=== PATIENT | female | born 1965 | race Caucasian/White ===

== ENCOUNTER 2018-09-11 19:59 | Inpatient (IN) | payer MEDICARE, OTHER ==
[~2018-09-11] VITALS: Ht 172.7 cm; Wt 94.8 kg
[2018-09-11] MEDS ORDERED: methylPREDNISolone SOD SUCC PF 125 MG/2 ML VIAL. IV ONE (20:45)
[2018-09-11] MEDS ORDERED: HYDROmorphone 2 MG/ML VIAL ONE (21:11)
[2018-09-11] MEDS ORDERED: HYDROmorphone 2 MG/ML VIAL IV ONE (21:15)
[2018-09-11 21:54] LABS: BASO # 0.1 x10^3/uL (0.0-0.2); BASO % 1 % (0-3); EOS # 0.1 x10^3/uL (0.0-0.7); EOS % 1 % (0-3); HEMATOCRIT 45.3 % (36.0-47.0); HEMOGLOBIN 15.4 g/dL (12.0-15.5); LYMPH # 3.5 x10^3/uL (1.0-4.8); LYMPH % 35 % (24-48); MEAN CORPUSCULAR HEMOGLOBIN 30 pg (25-35); MEAN CORPUSCULAR HGB CONC 34 g/dL (31-37); MEAN CORPUSCULAR VOLUME 89 fL (79-100); MONO # 0.8 x10^3/uL (0.0-1.1); MONO % 8 % (0-9); NEUT # 5.6 x10^3uL (1.8-7.7); NEUT % 55 % (31-73); PLATELET COUNT 226 x10^3/uL (140-400); WHITE BLOOD COUNT 10.2 x10^3/uL (4.0-11.0)
[2018-09-11 22:08] LABS: CALCIUM 9.1 mg/dL (8.5-10.1); GFR 58.5; POTASSIUM 3.7 mmol/L (3.5-5.1)
[2018-09-11 22:11] LABS: BILIRUBIN,URINE NEGATIVE (NEG); CLARITY,URINE CLOUDY; COLOR,URINE YELLOW; NITRITE,URINE NEGATIVE (NEG); PH,URINE 8.5; PROTEIN,URINE NEGATIVE (NEG-TRACE); UROBILINOGEN,URINE 0.2 mg/dL (0.2 mg/dL)
[2018-09-11 22:14] LABS: ALBUMIN 3.6 g/dL (3.4-5.0); TOTAL BILIRUBIN 0.3 mg/dL (0.2-1.0); TOTAL PROTEIN 7.1 g/dL (6.4-8.2)
[2018-09-11 22:17] LABS: AMORPHOUS SEDIMENT,UR PRESENT /HPF; BACTERIA,URINE FEW /HPF (0-FEW); RBC,URINE 0 /HPF (0-2); SQUAMOUS EPITHELIAL CELL,UR FEW /LPF
[2018-09-11 22:19] LABS: AMPHETAMINE/METHAMPHETAMINE NEG (NEG); BARBITURATES NEG (NEG); BENZODIAZEPINES POS (NEG); CANNABINOIDS POS (NEG); COCAINE NEG (NEG); METHADONE NEG (NEG); OPIATES POS (NEG); PHENCYCLIDINE NEG (NEG)
--- NOTE | 2018-09-11 22:24 | PHYS DOC ---
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 Patient states she was sitting talking with her when she turned her head and had sudden onset of burning sensation. Pt on arrival is anxious and tearful. Patient states she has chronic neck and back pain however this is more severe than previous exacerbation. Patient denies inability to move all extremities. Patient denies saddle anesthesia, incontinence of bowel or bladder, headache or dizziness, swelling, chest pain, or palpitations. Shouldn't denies any recent injury or falls. Patient states she has had increased stress as a family member is actively dying. Patient states she is on daily OxyIR and took her last dose at 3:30 PM. Patient reports she had an MRI last month at [facility] spinal stenosis. (BRITTANY PHELAN APRN) Review of Systems Review of Systems Constitutional: Denies fever or chills [] Eyes: Denies change in visual acuity, redness, or eye pain [] HENT: Denies nasal congestion or sore throat [] Respiratory: Denies cough or shortness of breath [] Cardiovascular: No additional information not addressed in HPI [] GI: Denies abdominal pain, nausea, vomiting, bloody stools or diarrhea [] : Denies dysuria or hematuria. Denies incontinence of bowel or bladder. Musculoskeletal: Reports mid C-spine to bilateral lower extremities "burning sensation" and severe pain Integument: Denies rash, swelling or skin lesions [] Neurologic: Denies headache, focal weakness or sensory changes. Denies dizziness Endocrine: Denies polyuria or polydipsia [] All other systems were reviewed and found to be within normal limits, except as documented in this note. (BRITTANY PHELAN APRN) Current Medications Current Medications Current Medications Medications (Trade) Dose Ordered Sig/Nita Start Time Stop Time Status Last Admin Dose Admin Hydromorphone HCl (Dilaudid) 2 mg STK-MED ONCE 09/11/18 21:11 09/11/18 21:12 DC Lorazepam (Ativan) 1 mg 1X ONCE 09/11/18 20:45 09/11/18 20:46 DC 09/11/18 21:00 1 MG Methylprednisolone Sodium Succinate (SOLU-Medrol 125MG VIAL) 125 mg 1X ONCE 09/11/18 20:45 09/11/18 20:46 DC 09/11/18 21:10 125 MG (LA NENA VERNON MD) Allergies Allergies Allergies Coded Allergies Type Severity Reaction Last Updated Verified Latex, Natural Rubber Allergy Intermediate BLISTERS 01/27/15 Yes esomeprazole Allergy Intermediate HIVES, NAUSEA 01/27/15 Yes morphine Allergy Intermediate SEE COMMENTS 01/27/15 No pantoprazole Allergy Intermediate RASH 01/27/15 Yes (LA NENA VERNON MD) Physical Exam Physical Exam Constitutional: Well developed, well nourished, severe distress on initial exam to fall and anxious-hyperventilating HENT: Normocephalic, atraumatic, oropharynx moist, nose normal. [] Eyes: PERRLA, no nystagmus, conjunctiva normal, no discharge. [] Neck: Normal range of motion, diffuse tenderness in bilateral sides of neck into mid C-spine no palpable deformity or crepitus, healed surgical scar mid cspine- supple, no stridor. Trachea midline Cardiovascular: Heart rate regular rhythm, no murmur [] Lungs & Thorax: Bilateral breath sounds clear to auscultation- resp equal and nonlabored Abdomen: Bowel sounds normal, soft/obese, no tenderness/distention or rigidity, no masses, no pulsatile masses. [] Skin: Warm, dry, no erythema, no rash. [] Back: Diffuse tenderness on palpation of mid spine-palpation of anywhere on the back patient had increased pain and anxiety. No palpable deformity or visible injury Extremities: Tender on palpation of bilateral lower extremities, no cyanosis, no clubbing, ROM intact all extremities, no edema. 2+ radial bilateral. 2+ dorsalis pedis/posterior tibial. Neurologic: Alert and oriented X 3, normal motor function, normal sensory function, no focal deficits noted. [] Psychologic: Affect normal, judgement normal, anxious and restless During exam other patient was anxious and tearful. She was able to reposition herself for examination of back. Patient had full range of motion of upper and l ower extremities. Patient was able to reach and grab side rale arrival to her left side. She did turn her head to the left side. Following exam patient was able to reposition herself in supine position. (KULWINDERT,BRITTANY Kaur APRN) Current Patient Data Vital Signs Vital Signs Date Time Temp Pulse Resp B/P (MAP) Pulse Ox O2 Delivery O2 Flow Rate FiO2 09/11/18 21:14 94 Room Air 09/11/18 20:02 97.5 78 26 145/64 (91) 97.5 (LA NENA VERNON MD) Lab Values Laboratory Tests Test 09/11/18 21:40 09/11/18 22:02 White Blood Count 10.2 x10^3/uL (4.0-11.0) Red Blood Count 5.10 x10^6/uL (3.50-5.40) Hemoglobin 15.4 g/dL (12.0-15.5) Hematocrit 45.3 % (36.0-47.0) Mean Corpuscular Volume 89 fL (79-100) Mean Corpuscular Hemoglobin 30 pg (25-35) Mean Corpuscular Hemoglobin Concent 34 g/dL (31-37) Red Cell Distribution Width 15.0 % (11.5-14.5) H Platelet Count 226 x10^3/uL (140-400) Neutrophils (%) (Auto) 55 % (31-73) Lymphocytes (%) (Auto) 35 % (24-48) Monocytes (%) (Auto) 8 % (0-9) Eosinophils (%) (Auto) 1 % (0-3) Basophils (%) (Auto) 1 % (0-3) Neutrophils # (Auto) 5.6 x10^3uL (1.8-7.7) Lymphocytes # (Auto) 3.5 x10^3/uL (1.0-4.8) Monocytes # (Auto) 0.8 x10^3/uL (0.0-1.1) Eosinophils # (Auto) 0.1 x10^3/uL (0.0-0.7) Basophils # (Auto) 0.1 x10^3/uL (0.0-0.2) Sodium Level 143 mmol/L (136-145) Potassium Level 3.7 mmol/L (3.5-5.1) Chloride Level 105 mmol/L (98-107) Carbon Dioxide Level 27 mmol/L (21-32) Anion Gap 11 (6-14) Blood Urea Nitrogen 16 mg/dL (7-20) Creatinine 1.0 mg/dL (0.6-1.0) Estimated GFR (Cockcroft-Gault) 58.5 BUN/Creatinine Ratio 16 (6-20) Glucose Level 116 mg/dL (70-99) H Calcium Level 9.1 mg/dL (8.5-10.1) Total Bilirubin 0.3 mg/dL (0.2-1.0) Aspartate Amino Transferase (AST) 20 U/L (15-37) Alanine Aminotransferase (ALT) 27 U/L (14-59) Alkaline Phosphatase 80 U/L (46-116) Troponin I Quantitative < 0.017 ng/mL (0.000-0.055) Total Protein 7.1 g/dL (6.4-8.2) Albumin 3.6 g/dL (3.4-5.0) Albumin/Globulin Ratio 1.0 (1.0-1.7) Urine Collection Type Unknown Urine Color Yellow Urine Clarity Cloudy Urine pH 8.5 Urine Specific [place] 1.015 Urine Protein Negative mg/dL (NEG-TRACE) Urine Glucose (UA) Negative mg/dL (NEG) Urine Ketones (Stick) Negative mg/dL (NEG) Urine Blood Negative (NEG) Urine Nitrite Negative (NEG) Urine Bilirubin Negative (NEG) Urine Urobilinogen Dipstick 0.2 mg/dL (0.2 mg/dL) Urine Leukocyte Esterase Small (NEG) Urine RBC 0 /HPF (0-2) Urine WBC 1-4 /HPF (0-4) Urine Squamous Epithelial Cells Few /LPF Urine Amorphous Sediment Present /HPF Urine Bacteria Few /HPF (0-FEW) Urine Opiates Screen Pos (NEG) Urine Methadone Screen Neg (NEG) Urine Barbiturates Neg (NEG) Urine Phencyclidine Screen Neg (NEG) Urine Amphetamine/Methamphetamine Neg (NEG) Urine Benzodiazepines Screen Pos (NEG) Urine Cocaine Screen Neg (NEG) Urine Cannabinoids Screen Pos (NEG) Urine Ethyl Alcohol Neg (NEG) Laboratory Tests 09/11/18 21:40 Laboratory Tests 09/11/18 21:40 (LA NENA VERNON MD) EKG EKG EKG obtained 09/11/18 at [address] Vernon Sinus rhythm Rate 76 No STEMI (HARDYJENNIFERAnaBRITTANY APRN) Radiology/Procedures Radiology/Procedures PROCEDURE: CHEST AP ONLY AP portable chest radiograph 09/11/2018 Clinical History: Cough. An AP erect portable digital radiograph of the chest was obtained. Comparison study is dated 05/28/2010. Stabilizing rods and pedicle screws overlie the cervical spine. The cardiac silhouette is normal in size. The thoracic aorta is minimally tortuous. No acute pulmonary infiltrate is seen. No pleural effusion or pneumothorax is noted. Degenerative changes are seen involving the thoracic spine and both shoulders. Impression: No acute abnormality is seen. Electronically signed by: Silvestre Arndt MD (09/11/2018 11:39 PM) [facility] DICTATED and SIGNED BY: SILVESTRE ARNDT MD DATE: 09/11/18 9495 (BRITTANY PHELAN APRN) Course & Med Decision Making Course & Med Decision Making Pertinent Labs and Imaging studies reviewed. (See chart for details) Patient was evaluated in the ER for complaints of sudden onset of severe neck and back pain. Patient received IV pain and anxiety medication and required O2 to be applied via nasal cannula as her O2 saturation was 88% on room air following medications. Pt remained alert and oriented 3 had no focal neuro deficits while in the ER. Patient reported chronic neck and back pain but stated this was more severe than previous exacerbations. Patient had EKG obtained with no acute ST elevation or STEMI. Troponin was <0.017. Chest x-ray with no acute findings. Other labs unremarkable. Patient continued to report her pain had been minimally relieved with IV pain and anxiety medicine. Patient also received dose of IV Solu-Medrol. Patient had full range of motion of all extremities. This provider went into discussed test results and found patient to be on the bedpan. This provider assisted her off the bedpan and patient was able to lift her buttock without assist and reposition herself on the ER cart. Patient states she is still having significant neck and back pain and so admission was discussed. Will admit to hospitalist services and placed consult for neurosurgery. Patient states her neurosurgeon is at [facility] due to high flow she was brought to this ER for treatment. 2215: Spoke with Dr. Hagen, hospitalist and discussed pt's case and admit plan. (BRITTANY PHELAN APRN) Course & Med Decision Making Staff Physician Addendum: I was working in the ER during the course of this patient's visit. I was available for consultation as needed, but I was not directly involved in the care of this patient. (LA NENA VERNON MD) Dragon Disclaimer Dragon Disclaimer This electronic medical record was generated, in whole or in part, using a voice recognition dictation system. (BRITTANY PHELAN APRN) Departure Departure Impression: Primary Impression: Intractable pain Additional Impressions: Neck pain Back pain Disposition: ADMITTED INPATIENT Admitting Physician: Other (Dr. Hagen) (BRITTANY PHELAN APRN) Condition: STABLE Referrals: KARLY MCCARTY MD (PCP) Problem Qualifiers BRITTANY PHELAN APRN September 11, 2018 22:24 LA NENA VERNON MD September 18, 2018 06:47
[2018-09-11] MEDS ORDERED: DOXYCYCLINE HYCLATE 100 MG TABLET PO ONE (23:15)
--- NOTE | 2018-09-11 23:42 | RAD ---
AP portable chest radiograph 09/11/2018 Clinical History: Cough. An AP erect portable digital radiograph of the chest was obtained. Comparison study is dated 05/28/2010. Stabilizing rods and pedicle screws overlie the cervical spine. The cardiac silhouette is normal in size. The thoracic aorta is minimally tortuous. No acute pulmonary infiltrate is seen. No pleural effusion or pneumothorax is noted. Degenerative changes are seen involving the thoracic spine and both shoulders. Impression: No acute abnormality is seen. Electronically signed by: Silvestre Arndt MD (09/11/2018 11:39 PM) [facility]
[2018-09-12] VITALS (7 sets, daily range): BP systolic 117–139; BP diastolic 51–78
[2018-09-12] MEDS: HYDROmorphone 2 MG/ML VIAL IV PRN ×4 (01:32→13:52)
[2018-09-12] MEDS: ONDANSETRON PF 4 MG/2 ML VIAL. IV PRN ×2 (01:39→10:02)
[2018-09-12 05:23] LABS: BASO # 0.1 x10^3/uL (0.0-0.2); BASO % 1 % (0-3); EOS % 0 % (0-3); HEMATOCRIT 48.6 % (36.0-47.0); HEMOGLOBIN 16.3 g/dL (12.0-15.5); LYMPH # 1.4 x10^3/uL (1.0-4.8); LYMPH % 14 % (24-48); MEAN CORPUSCULAR HEMOGLOBIN 30 pg (25-35); MEAN CORPUSCULAR HGB CONC 34 g/dL (31-37); MEAN CORPUSCULAR VOLUME 89 fL (79-100); MONO # 0.3 x10^3/uL (0.0-1.1); MONO % 3 % (0-9); NEUT # 8.2 x10^3uL (1.8-7.7); NEUT % 83 % (31-73); PLATELET COUNT 266 x10^3/uL (140-400); RED CELL DISTRIBUTION WIDTH 15.1 % (11.5-14.5)
[2018-09-12 05:35] LABS: CALCIUM 9.6 mg/dL (8.5-10.1); CREATININE 0.9 mg/dL (0.6-1.0)
--- NOTE | 2018-09-12 06:42 | EKG ---
[facility] [address] [place] [id number] Test Date: 2018-09-11 Test Time: 21:06:32 Pat Name: MEREDITH ROCHA Department: Room: [facility] Gender: F Custodial Foreman: LENINTahira : 1965 Requested By: BRITTANY PHELAN Order Number: [id number] Reading MD: Pedro Meyer Measurements Intervals [place] Rate: 75 P: -44 TX: 156 QRS: 68 QRSD: 94 T: 74 QT: 408 QTc: 458 Interpretive Statements SINUS RHYTHM QRS(T) CONTOUR ABNORMALITY CANNOT RULE OUT ANTEROSEPTAL MYOCARDIAL DAMAGE BORDERLINE ECG No previous ECG available for comparison Electronically Signed On 10-06-2018 11:43:17 CDT by Pedro Meyer
--- NOTE | 2018-09-12 08:19 | PDOC1 ---
History and Physical Date of Admission Date of Admission DATE: 09/12/18 TIME: 08:18 Identification/Chief Complaint Chief Complaint Shooting back pain Source Source: Chart review, Patient History of Present Illness History of Present Illness Ms Richey is a 53-year-old female w/ PMHx Anxiety, Arthritis, Asthma, Diverticulitis, Fibromyalgia, High Cholesterol, Seizures, DJD cervical spine, cervical spinal stenosis who presents to ER for complaints of sudden onset of posterior neck pain radiating down her spine into her legs. Patient states she was sitting talking with her when she turned her head and had sudden onset of burning sensation. Pt on arrival is anxious and tearful. Patient states she has chronic neck and back pain however this is more severe than previous times, she notes aching in all the muscles of her body. Patient denies inability to move all extremities. Patient denies saddle anesthesia, incontinence of bowel or bladder, headache or dizziness, swelling, chest pain, or palpitations. Shouldn't denies any recent injury or falls. Patient states she has had increased stress as a family member is actively dying. Patient states she is on daily OxyIR 10mg TID and Oxycontin recently increased to 50mg BID. States she does not miss doses Patient reports she had an MRI last month at [facility] for spinal stenosis and has f/u there. Past Medical History Cardiovascular: Hyperlipidemia Pulmonary: Asthma CENTRAL NERVOUS SYSTEM: Seizure GI: Diverticulosis Heme/Onc: No pertinent hx Hepatobiliary: No pertinent hx Psych: Anxiety Musculoskeletal: low back pain Rheumatologic: Fibromyalgia Infectious disease: No pertinent hx ENT: No pertinent hx Renal/: No pertinent hx Endocrine: No pertinent hx Dermatology: No pertinent hx Past Surgical History Past Surgical History: Cholecystectomy, Tubal Ligation Family History Family History: High Cholestrol, Hypertension Social History Smoke: No ALCOHOL: none Drugs: None Current Problem List Problem List Problems Medical Problems: (1) Back pain Status: Acute (2) Intractable pain Status: Acute (3) Neck pain Status: Acute Current Medications Current Medications Current Medications Lorazepam (Ativan) 1 mg 1X ONCE IV Last administered on 09/11/18at 21:00; Start 09/11/18 at 20:45; Stop 09/11/18 at 20:46; Status DC Methylprednisolone Sodium Succinate (SOLU-Medrol 125MG VIAL) 125 mg 1X ONCE IV Last administered on 09/11/18at 21:10; Start 09/11/18 at 20:45; Stop 09/11/18 at 20:46; Status DC Hydromorphone HCl (Dilaudid) 1 mg 1X ONCE IV Last administered on 09/11/18at 21:14; Start 09/11/18 at 21:15; Stop 09/11/18 at 21:16; Status DC Hydromorphone HCl (Dilaudid) 2 mg STK-MED ONCE .ROUTE ; Start 09/11/18 at 21:11; Stop 09/11/18 at 21:12; Status DC Doxycycline Hyclate (Vibra-Tab) 100 mg 1X ONCE PO Last administered on 09/11/18at 23:08; Start 09/11/18 at 23:15; Stop 09/11/18 at 23:16; Status DC Hydromorphone HCl (Dilaudid) 1 mg PRN Q4HRS PRN IV SEVERE PAIN Last administered on 09/12/18at 06:15; Start 09/12/18 at 00:00 Ondansetron HCl (Zofran) 4 mg PRN Q8HRS PRN IV NAUSEA/VOMITING 1ST CHOICE Last administered on 09/12/18at 01:39; Start 09/12/18 at 00:00; Stop 09/12/18 at 23:59 Allergies Allergies: Coded Allergies: Latex, Natural Rubber (Verified Allergy, Intermediate, BLISTERS, 01/27/15) esomeprazole (Verified Allergy, Intermediate, HIVES, NAUSEA , 01/27/15) morphine (Unverified Allergy, Intermediate, SEE COMMENTS, 01/27/15) ITCHY RASH; TOLERATES LORTAB pantoprazole (Verified Allergy, Intermediate, RASH, 01/27/15) ROS General: YES: Chills, Fatigue, Malaise; No: Night Sweats, Appetite, Other PSYCHOLOGICAL ROS: YES: Anxiety; No: Behavioral Disorder, Concentration difficultie, Decreased libido, Depression, Disorientation, Hallucinations, Hostility, Irritablity, Memory difficulties, Mood Swings, Obsessive thoughts, Physical abuse, Sexual abuse, Sleep disturbances, Suicidal ideation, Other Eyes: No Blurry vision, No Decreased vision, No Double vision, No Dry eyes, No Excessive tearing, No Eye Pain, No Itchy Eyes, No Loss of vision, No Photophobia, No Scotomata, No Uses contacts, No Uses glasses, No Other HEENT: YES: Heacaches; No: Visual Changes, Hearing change, Nasal congestion, Nasal discharge, Oral lesions, Sinus pain, Sore Throat, Epistaxis, Sneezing, Snoring, Tinnitus, Vertigo, Vocal changes, Other ALLERGY AND IMMUNOLOGY: No: Hives, Insect Bite Sensitivity, Itchy/Watery Eyes, Nasal Congestion, Post Nasal Drip, Seasonal Allergies, Other Hematological and Lymphatic: No: Bleeding Problems, Blood Clots, Blood Transfusions, Brusing, Night Sweats, Pallor, Swollen Lymph Nodes, Other ENDOCRINE: No: Breast Changes, Galactorrhea, Hair Pattern Changes, Hot Flashes, Malaise/lethargy, Mood Swings, Palpitations, Polydipsia/polyuria, Skin Changes, Temperature Intolerance, Unexpected Weight Changes, Other Breast: No New/Changing Breast Lumps, No Nipple changes, No Nipple discharge, No Other Respiratory: No: Cough, Hemoptysis, Orthopnea, Pleuritic Pain, Shortness of breath, SOB with excertion, Sputum Changes, Stridor, Tachypnea, Wheezing, Other Cardiovascular: No Chest Pain, No Palpitations, No Orthopnea, No Paroxysmal Noc. Dyspnea, No Edema, No Lt Headedness, No Other Gastrointestinal: Yes Nausea; No Vomiting, No Abdominal Pain, No Diarrhea, No Constipation, No Melena, No Hematochezia, No Other Genitourinary: No Dysuria, No Frequency, No Incontinence, No Hematuria, No Retention, No Discharge, No Urgency, No Pain, No Flank Pain, No Other, No , No , No , No , No , No , No Musculoskeletal: Yes Gait Disturbance, Yes Muscle Pain, Yes Muscular Weakness; No Joint Pain, No Joint Stiffness, No Joint Swelling, No Pain In:, No Swelling In:, No Other Neurological: No Behavorial Changes, No Bowel/Bladder ControlChng, No Confusion, No Dizziness, No Gait Disturbance, No Headaches, No Impaired Coord/balance, No Memory Loss, No Numbness/Tingling, No Seizures, No Speech Problems, No Tremors, No Visual Changes, No Weakness, No Other Skin: No Dry Skin, No Eczema, No Hair Changes, No Lumps, No Mole Changes, No Mottling, No Nail Changes, No Pruritus, No Rash, No Skin Lesion Changes, No Other, No Acne Physical Exam General: Alert, Oriented X3, Cooperative, No acute distress HEENT: Atraumatic, PERRLA, EOMI, Mucous membr. moist/pink Lungs: Clear to auscultation, Normal air movement Heart: S1S2, RRR, no gallops, no murmurs Abdomen: Normal bowel sounds, Soft, No tenderness, No hepatosplenomegaly, No masses Rectal Exam: not examined Extremities: No clubbing, No cyanosis, No edema, Normal pulses, No tenderness/swelling Skin: No rashes, No breakdown, No significant lesion Neuro: Normal gait, Normal speech, Strength at 5/5 X4 ext, Normal tone, Sensation intact, Cranial nerves 3-12 NL, Reflexes 2+ Psych/Mental Status: Mental status NL, Mood NL Vitals Vitals Vital Signs Date Time Temp Pulse Resp B/P (MAP) Pulse Ox O2 Delivery O2 Flow Rate FiO2 09/12/18 07:47 Room Air 09/12/18 03:00 98.1 90 18 136/51 (79) 95 2.0 98.1 Labs Labs Laboratory Tests Test 09/11/18 21:40 09/11/18 22:02 09/12/18 05:00 White Blood Count 10.2 x10^3/uL (4.0-11.0) 10.0 x10^3/uL (4.0-11.0) Red Blood Count 5.10 x10^6/uL (3.50-5.40) 5.50 x10^6/uL (3.50-5.40) Hemoglobin 15.4 g/dL (12.0-15.5) 16.3 g/dL (12.0-15.5) Hematocrit 45.3 % (36.0-47.0) 48.6 % (36.0-47.0) Mean Corpuscular Volume 89 fL (79-100) 89 fL (79-100) Mean Corpuscular Hemoglobin 30 pg (25-35) 30 pg (25-35) Mean Corpuscular Hemoglobin Concent 34 g/dL (31-37) 34 g/dL (31-37) Red Cell Distribution Width 15.0 % (11.5-14.5) 15.1 % (11.5-14.5) Platelet Count 226 x10^3/uL (140-400) 266 x10^3/uL (140-400) Neutrophils (%) (Auto) 55 % (31-73) 83 % (31-73) Lymphocytes (%) (Auto) 35 % (24-48) 14 % (24-48) Monocytes (%) (Auto) 8 % (0-9) 3 % (0-9) Eosinophils (%) (Auto) 1 % (0-3) 0 % (0-3) Basophils (%) (Auto) 1 % (0-3) 1 % (0-3) Neutrophils # (Auto) 5.6 x10^3uL (1.8-7.7) 8.2 x10^3uL (1.8-7.7) Lymphocytes # (Auto) 3.5 x10^3/uL (1.0-4.8) 1.4 x10^3/uL (1.0-4.8) Monocytes # (Auto) 0.8 x10^3/uL (0.0-1.1) 0.3 x10^3/uL (0.0-1.1) Eosinophils # (Auto) 0.1 x10^3/uL (0.0-0.7) 0.0 x10^3/uL (0.0-0.7) Basophils # (Auto) 0.1 x10^3/uL (0.0-0.2) 0.1 x10^3/uL (0.0-0.2) Sodium Level 143 mmol/L (136-145) 141 mmol/L (136-145) Potassium Level 3.7 mmol/L (3.5-5.1) 4.0 mmol/L (3.5-5.1) Chloride Level 105 mmol/L (98-107) 104 mmol/L (98-107) Carbon Dioxide Level 27 mmol/L (21-32) 23 mmol/L (21-32) Anion Gap 11 (6-14) 14 (6-14) Blood Urea Nitrogen 16 mg/dL (7-20) 20 mg/dL (7-20) Creatinine 1.0 mg/dL (0.6-1.0) 0.9 mg/dL (0.6-1.0) Estimated GFR (Cockcroft-Gault) 58.5 66.0 BUN/Creatinine Ratio 16 (6-20) Glucose Level 116 mg/dL (70-99) 146 mg/dL (70-99) Calcium Level 9.1 mg/dL (8.5-10.1) 9.6 mg/dL (8.5-10.1) Total Bilirubin 0.3 mg/dL (0.2-1.0) Aspartate Amino Transf (AST/SGOT) 20 U/L (15-37) Alanine Aminotransferase (ALT/SGPT) 27 U/L (14-59) Alkaline Phosphatase 80 U/L (46-116) Troponin I Quantitative < 0.017 ng/mL (0.000-0.055) Total Protein 7.1 g/dL (6.4-8.2) Albumin 3.6 g/dL (3.4-5.0) Albumin/Globulin Ratio 1.0 (1.0-1.7) Urine Collection Type Unknown Urine Color Yellow Urine Clarity Cloudy Urine pH 8.5 Urine Specific Eunice 1.015 Urine Protein Negative mg/dL (NEG-TRACE) Urine Glucose (UA) Negative mg/dL (NEG) Urine Ketones (Stick) Negative mg/dL (NEG) Urine Blood Negative (NEG) Urine Nitrite Negative (NEG) Urine Bilirubin Negative (NEG) Urine Urobilinogen Dipstick 0.2 mg/dL (0.2 mg/dL) Urine Leukocyte Esterase Small (NEG) Urine RBC 0 /HPF (0-2) Urine WBC 1-4 /HPF (0-4) Urine Squamous Epithelial Cells Few /LPF Urine Amorphous Sediment Present /HPF Urine Bacteria Few /HPF (0-FEW) Urine Opiates Screen Pos (NEG) Urine Methadone Screen Neg (NEG) Urine Barbiturates Neg (NEG) Urine Phencyclidine Screen Neg (NEG) Urine Amphetamine/Methamphetamine Neg (NEG) Urine Benzodiazepines Screen Pos (NEG) Urine Cocaine Screen Neg (NEG) Urine Cannabinoids Screen Pos (NEG) Urine Ethyl Alcohol Neg (NEG) Laboratory Tests Test 09/11/18 21:40 09/11/18 22:02 09/12/18 05:00 White Blood Count 10.2 x10^3/uL (4.0-11.0) 10.0 x10^3/uL (4.0-11.0) Red Blood Count 5.10 x10^6/uL (3.50-5.40) 5.50 x10^6/uL (3.50-5.40) Hemoglobin 15.4 g/dL (12.0-15.5) 16.3 g/dL (12.0-15.5) Hematocrit 45.3 % (36.0-47.0) 48.6 % (36.0-47.0) Mean Corpuscular Volume 89 fL (79-100) 89 fL (79-100) Mean Corpuscular Hemoglobin 30 pg (25-35) 30 pg (25-35) Mean Corpuscular Hemoglobin Concent 34 g/dL (31-37) 34 g/dL (31-37) Red Cell Distribution Width 15.0 % (11.5-14.5) 15.1 % (11.5-14.5) Platelet Count 226 x10^3/uL (140-400) 266 x10^3/uL (140-400) Neutrophils (%) (Auto) 55 % (31-73) 83 % (31-73) Lymphocytes (%) (Auto) 35 % (24-48) 14 % (24-48) Monocytes (%) (Auto) 8 % (0-9) 3 % (0-9) Eosinophils (%) (Auto) 1 % (0-3) 0 % (0-3) Basophils (%) (Auto) 1 % (0-3) 1 % (0-3) Neutrophils # (Auto) 5.6 x10^3uL (1.8-7.7) 8.2 x10^3uL (1.8-7.7) Lymphocytes # (Auto) 3.5 x10^3/uL (1.0-4.8) 1.4 x10^3/uL (1.0-4.8) Monocytes # (Auto) 0.8 x10^3/uL (0.0-1.1) 0.3 x10^3/uL (0.0-1.1) Eosinophils # (Auto) 0.1 x10^3/uL (0.0-0.7) 0.0 x10^3/uL (0.0-0.7) Basophils # (Auto) 0.1 x10^3/uL (0.0-0.2) 0.1 x10^3/uL (0.0-0.2) Sodium Level 143 mmol/L (136-145) 141 mmol/L (136-145) Potassium Level 3.7 mmol/L (3.5-5.1) 4.0 mmol/L (3.5-5.1) Chloride Level 105 mmol/L (98-107) 104 mmol/L (98-107) Carbon Dioxide Level 27 mmol/L (21-32) 23 mmol/L (21-32) Anion Gap 11 (6-14) 14 (6-14) Blood Urea Nitrogen 16 mg/dL (7-20) 20 mg/dL (7-20) Creatinine 1.0 mg/dL (0.6-1.0) 0.9 mg/dL (0.6-1.0) Estimated GFR (Cockcroft-Gault) 58.5 66.0 BUN/Creatinine Ratio 16 (6-20) Glucose Level 116 mg/dL (70-99) 146 mg/dL (70-99) Calcium Level 9.1 mg/dL (8.5-10.1) 9.6 mg/dL (8.5-10.1) Total Bilirubin 0.3 mg/dL (0.2-1.0) Aspartate Amino Transf (AST/SGOT) 20 U/L (15-37) Alanine Aminotransferase (ALT/SGPT) 27 U/L (14-59) Alkaline Phosphatase 80 U/L (46-116) Troponin I Quantitative < 0.017 ng/mL (0.000-0.055) Total Protein 7.1 g/dL (6.4-8.2) Albumin 3.6 g/dL (3.4-5.0) Albumin/Globulin Ratio 1.0 (1.0-1.7) Urine Collection Type Unknown Urine Color Yellow Urine Clarity Cloudy Urine pH 8.5 Urine Specific Eunice 1.015 Urine Protein Negative mg/dL (NEG-TRACE) Urine Glucose (UA) Negative mg/dL (NEG) Urine Ketones (Stick) Negative mg/dL (NEG) Urine Blood Negative (NEG) Urine Nitrite Negative (NEG) Urine Bilirubin Negative (NEG) Urine Urobilinogen Dipstick 0.2 mg/dL (0.2 mg/dL) Urine Leukocyte Esterase Small (NEG) Urine RBC 0 /HPF (0-2) Urine WBC 1-4 /HPF (0-4) Urine Squamous Epithelial Cells Few /LPF Urine Amorphous Sediment Present /HPF Urine Bacteria Few /HPF (0-FEW) Urine Opiates Screen Pos (NEG) Urine Methadone Screen Neg (NEG) Urine Barbiturates Neg (NEG) Urine Phencyclidine Screen Neg (NEG) Urine Amphetamine/Methamphetamine Neg (NEG) Urine Benzodiazepines Screen Pos (NEG) Urine Cocaine Screen Neg (NEG) Urine Cannabinoids Screen Pos (NEG) Urine Ethyl Alcohol Neg (NEG) Images Images CXR - Stabilizing rods and pedicle screws overlie the cervical spine. The cardiac silhouette is normal in size. The thoracic aorta is minimally tortuous. No acute pulmonary infiltrate is seen. No pleural effusion or pneumothorax is noted. Degenerative changes are seen involving the thoracic spine and both shoulders. VTE Prophylaxis Ordered VTE Prophylaxis Devices: No VTE Pharmacological Prophylaxi: Yes Assessment/Plan Assessment/Plan A/P: Intractable back pain - IV medications do not seem to be helping, will restart her home medications, consult neurosurgery Myalgias - seems she may be in some opioid withdrawal at this time regarding her symptoms, will restart her Oxycontin Anxiety - cont meds. Advised she should either not be taking benzos or be taking them with extreme caution with her high dosing regimen of opioids to avoid conscious sedation and risk of overdose. 20 minutes spent counseling on proper medication use Arthritis - with polyarthralgias, given steroids with little improvement Asthma - cont nebs Fibromyalgia - cont cymbalta High Cholesterol - cont statin Seizures - cont meds DJD cervical spine with cervical spinal stenosis - s/p surgery, has f/u with [facility], will order records FEN - General diet PPX - heparin FULL CODE Inpatient for intractable back pain and myalgias, patient unable to move. Will cont pain management until she is ambulatory, f/u with neurosurgery, may be able to d/c in next day or 2 if no interventions are planned PASCUAL CARR MD September 12, 2018 08:19
[2018-09-12] MEDS: CYCLOBENZAPRINE 10 MG TABLET. PO PRN ×2 (10:02→15:57)
--- NOTE | 2018-09-12 10:58 | NUR ---
Pt states she takes a lot of home medications but she can't remember what they are. She reports that her is going to bring the bottles up.
--- NOTE | 2018-09-12 12:07 | NUR ---
SW following for discharge planning. Discussed with RN, pt is from home with . RN advised no SW needs at this time, awaiting PT/OT. SW will continue to follow for any discharge planning needs.
[2018-09-12] MEDS ORDERED: DULO60CA6 PO (13:05)
[2018-09-12] MEDS ORDERED: PREG75CA PO (13:05)
[2018-09-12] MEDS ORDERED: METH-37 PO (13:05)
[2018-09-12] MEDS ORDERED: VENTOLIN HFA18 GM INH (13:05)
[2018-09-12] MEDS ORDERED: FERR325T14 PO (13:05)
[2018-09-12] MEDS ORDERED: ZIPR80CA2 PO (13:05)
[2018-09-12] MEDS ORDERED: ONDA4TAB11 PO (13:05)
[2018-09-12] MEDS ORDERED: MONT10TA9 PO (13:05)
[2018-09-12] MEDS ORDERED: DIAZ5TAB4 PO (13:05)
[2018-09-12] MEDS ORDERED: DICL100G18 TP (13:05)
[2018-09-12] MEDS ORDERED: LAMO150T2 PO (13:05)
[2018-09-12] MEDS ORDERED: LACT20SO PO (13:05)
[2018-09-12] MEDS ORDERED: MULT1TAB68 PO (13:05)
[2018-09-12] MEDS ORDERED: CARB200T PO (13:05)
[2018-09-12] MEDS ORDERED: PREG150C PO (13:05)
[2018-09-12] MEDS ORDERED: OXYC20TA34 PO (13:05)
[2018-09-12] MEDS ORDERED: FENO145T30 PO (13:05)
[2018-09-12] MEDS ORDERED: OXYC40TA21 PO (13:05)
[2018-09-12] MEDS ORDERED: OMEP40CA5 PO (13:05)
[2018-09-12] MEDS ORDERED: OXYC5CAP PO (13:05)
[2018-09-12] MEDS ORDERED: LACTULOSE 20 GM/30 ML SOLUTION. PO PRN (13:30)
[2018-09-12] MEDS ORDERED: METHOCARBAMOL 500 MG TABLET PO PRN (13:30)
[2018-09-12] MEDS: oxyCODONE ER 10 MG TAB.ER.12H PO SCH ×2 (13:45→21:07)
[2018-09-12] MEDS ORDERED: ONDANSETRON ODT 4 MG TAB.RAPDIS. PO PRN (13:45)
[2018-09-12] MEDS: oxyCODONE ER 40 MG TAB.ER.12H PO SCH ×2 (13:46→21:07)
[2018-09-12] MEDS: carBAMazepine 200 MG TABLET PO SCH ×2 (13:52→21:07)
[2018-09-12] MEDS: FERROUS SULFATE 325 MG TABLET. PO SCH (13:52)
[2018-09-12] MEDS: FENOFIBRATE,MICRONIZED 134 MG CAPSULE PO SCH (13:52)
[2018-09-12] MEDS: DULoxetine HCL 30 MG CAPSULE.DR PO SCH (13:52)
[2018-09-12] MEDS: ALBUTEROL SULFATE 2.5 MG/3 ML NEBU. NEB SCH ×2 (15:46→20:22)
--- NOTE | 2018-09-12 15:52 | PDOC ---
PROGRESS NOTES Subjective Subjective patient seen and examined. admitted with neck and low back pain. patient reports chronic neck and low back pain, has undergone multiple surgeries on both at [facility] reports increased pain in neck and low back and pain into arms and legs yesterday afternoon. on exam, neuro intact she reports currently her pain is significantly improved now that she has received her home medications. She follows at the [facility] pain clinic for pain m edications. she recently had MRI scan at [facility] and is scheduled to see Dr. Gonzales. She may dc from our standpoint and follow up at [facility] as scheduled. D/W RN Spoke with Dr. Gonzales's nurse, Bertha. She will contact patient tomorrow and they will work her in to see Dr. Gonzales on Tuesday. Objective Objective Vital Signs Date Time Temp Pulse Resp B/P (MAP) Pulse Ox O2 Delivery O2 Flow Rate FiO2 09/12/18 15:00 98.1 71 16 138/78 (98) 92 Room Air 98.1 09/12/18 03:00 2.0 Assessment Assessment Problems Medical Problems: (1) Back pain Status: Acute (2) Intractable pain Status: Acute (3) Neck pain Status: Acute Comment Review of Relevant I have reviewed the following items jen (where applicable) has been applied. Labs Laboratory Tests Test 09/11/18 21:40 09/11/18 22:02 09/12/18 05:00 White Blood Count 10.2 x10^3/uL (4.0-11.0) 10.0 x10^3/uL (4.0-11.0) Red Blood Count 5.10 x10^6/uL (3.50-5.40) 5.50 x10^6/uL (3.50-5.40) Hemoglobin 15.4 g/dL (12.0-15.5) 16.3 g/dL (12.0-15.5) Hematocrit 45.3 % (36.0-47.0) 48.6 % (36.0-47.0) Mean Corpuscular Volume 89 fL (79-100) 89 fL (79-100) Mean Corpuscular Hemoglobin 30 pg (25-35) 30 pg (25-35) Mean Corpuscular Hemoglobin Concent 34 g/dL (31-37) 34 g/dL (31-37) Red Cell Distribution Width 15.0 % (11.5-14.5) 15.1 % (11.5-14.5) Platelet Count 226 x10^3/uL (140-400) 266 x10^3/uL (140-400) Neutrophils (%) (Auto) 55 % (31-73) 83 % (31-73) Lymphocytes (%) (Auto) 35 % (24-48) 14 % (24-48) Monocytes (%) (Auto) 8 % (0-9) 3 % (0-9) Eosinophils (%) (Auto) 1 % (0-3) 0 % (0-3) Basophils (%) (Auto) 1 % (0-3) 1 % (0-3) Neutrophils # (Auto) 5.6 x10^3uL (1.8-7.7) 8.2 x10^3uL (1.8-7.7) Lymphocytes # (Auto) 3.5 x10^3/uL (1.0-4.8) 1.4 x10^3/uL (1.0-4.8) Monocytes # (Auto) 0.8 x10^3/uL (0.0-1.1) 0.3 x10^3/uL (0.0-1.1) Eosinophils # (Auto) 0.1 x10^3/uL (0.0-0.7) 0.0 x10^3/uL (0.0-0.7) Basophils # (Auto) 0.1 x10^3/uL (0.0-0.2) 0.1 x10^3/uL (0.0-0.2) Sodium Level 143 mmol/L (136-145) 141 mmol/L (136-145) Potassium Level 3.7 mmol/L (3.5-5.1) 4.0 mmol/L (3.5-5.1) Chloride Level 105 mmol/L (98-107) 104 mmol/L (98-107) Carbon Dioxide Level 27 mmol/L (21-32) 23 mmol/L (21-32) Anion Gap 11 (6-14) 14 (6-14) Blood Urea Nitrogen 16 mg/dL (7-20) 20 mg/dL (7-20) Creatinine 1.0 mg/dL (0.6-1.0) 0.9 mg/dL (0.6-1.0) Estimated GFR (Cockcroft-Gault) 58.5 66.0 BUN/Creatinine Ratio 16 (6-20) Glucose Level 116 mg/dL (70-99) 146 mg/dL (70-99) Calcium Level 9.1 mg/dL (8.5-10.1) 9.6 mg/dL (8.5-10.1) Total Bilirubin 0.3 mg/dL (0.2-1.0) Aspartate Amino Transf (AST/SGOT) 20 U/L (15-37) Alanine Aminotransferase (ALT/SGPT) 27 U/L (14-59) Alkaline Phosphatase 80 U/L (46-116) Troponin I Quantitative < 0.017 ng/mL (0.000-0.055) Total Protein 7.1 g/dL (6.4-8.2) Albumin 3.6 g/dL (3.4-5.0) Albumin/Globulin Ratio 1.0 (1.0-1.7) Urine Collection Type Unknown Urine Color Yellow Urine Clarity Cloudy Urine pH 8.5 Urine Specific English 1.015 Urine Protein Negative mg/dL (NEG-TRACE) Urine Glucose (UA) Negative mg/dL (NEG) Urine Ketones (Stick) Negative mg/dL (NEG) Urine Blood Negative (NEG) Urine Nitrite Negative (NEG) Urine Bilirubin Negative (NEG) Urine Urobilinogen Dipstick 0.2 mg/dL (0.2 mg/dL) Urine Leukocyte Esterase Small (NEG) Urine RBC 0 /HPF (0-2) Urine WBC 1-4 /HPF (0-4) Urine Squamous Epithelial Cells Few /LPF Urine Amorphous Sediment Present /HPF Urine Bacteria Few /HPF (0-FEW) Urine Opiates Screen Pos (NEG) Urine Methadone Screen Neg (NEG) Urine Barbiturates Neg (NEG) Urine Phencyclidine Screen Neg (NEG) Urine Amphetamine/Methamphetamine Neg (NEG) Urine Benzodiazepines Screen Pos (NEG) Urine Cocaine Screen Neg (NEG) Urine Cannabinoids Screen Pos (NEG) Urine Ethyl Alcohol Neg (NEG) Laboratory Tests Test 09/11/18 21:40 09/11/18 22:02 09/12/18 05:00 White Blood Count 10.2 x10^3/uL (4.0-11.0) 10.0 x10^3/uL (4.0-11.0) Red Blood Count 5.10 x10^6/uL (3.50-5.40) 5.50 x10^6/uL (3.50-5.40) Hemoglobin 15.4 g/dL (12.0-15.5) 16.3 g/dL (12.0-15.5) Hematocrit 45.3 % (36.0-47.0) 48.6 % (36.0-47.0) Mean Corpuscular Volume 89 fL (79-100) 89 fL (79-100) Mean Corpuscular Hemoglobin 30 pg (25-35) 30 pg (25-35) Mean Corpuscular Hemoglobin Concent 34 g/dL (31-37) 34 g/dL (31-37) Red Cell Distribution Width 15.0 % (11.5-14.5) 15.1 % (11.5-14.5) Platelet Count 226 x10^3/uL (140-400) 266 x10^3/uL (140-400) Neutrophils (%) (Auto) 55 % (31-73) 83 % (31-73) Lymphocytes (%) (Auto) 35 % (24-48) 14 % (24-48) Monocytes (%) (Auto) 8 % (0-9) 3 % (0-9) Eosinophils (%) (Auto) 1 % (0-3) 0 % (0-3) Basophils (%) (Auto) 1 % (0-3) 1 % (0-3) Neutrophils # (Auto) 5.6 x10^3uL (1.8-7.7) 8.2 x10^3uL (1.8-7.7) Lymphocytes # (Auto) 3.5 x10^3/uL (1.0-4.8) 1.4 x10^3/uL (1.0-4.8) Monocytes # (Auto) 0.8 x10^3/uL (0.0-1.1) 0.3 x10^3/uL (0.0-1.1) Eosinophils # (Auto) 0.1 x10^3/uL (0.0-0.7) 0.0 x10^3/uL (0.0-0.7) Basophils # (Auto) 0.1 x10^3/uL (0.0-0.2) 0.1 x10^3/uL (0.0-0.2) Sodium Level 143 mmol/L (136-145) 141 mmol/L (136-145) Potassium Level 3.7 mmol/L (3.5-5.1) 4.0 mmol/L (3.5-5.1) Chloride Level 105 mmol/L (98-107) 104 mmol/L (98-107) Carbon Dioxide Level 27 mmol/L (21-32) 23 mmol/L (21-32) Anion Gap 11 (6-14) 14 (6-14) Blood Urea Nitrogen 16 mg/dL (7-20) 20 mg/dL (7-20) Creatinine 1.0 mg/dL (0.6-1.0) 0.9 mg/dL (0.6-1.0) Estimated GFR (Cockcroft-Gault) 58.5 66.0 BUN/Creatinine Ratio 16 (6-20) Glucose Level 116 mg/dL (70-99) 146 mg/dL (70-99) Calcium Level 9.1 mg/dL (8.5-10.1) 9.6 mg/dL (8.5-10.1) Total Bilirubin 0.3 mg/dL (0.2-1.0) Aspartate Amino Transf (AST/SGOT) 20 U/L (15-37) Alanine Aminotransferase (ALT/SGPT) 27 U/L (14-59) Alkaline Phosphatase 80 U/L (46-116) Troponin I Quantitative < 0.017 ng/mL (0.000-0.055) Total Protein 7.1 g/dL (6.4-8.2) Albumin 3.6 g/dL (3.4-5.0) Albumin/Globulin Ratio 1.0 (1.0-1.7) Urine Collection Type Unknown Urine Color Yellow Urine Clarity Cloudy Urine pH 8.5 Urine Specific English 1.015 Urine Protein Negative mg/dL (NEG-TRACE) Urine Glucose (UA) Negative mg/dL (NEG) Urine Ketones (Stick) Negative mg/dL (NEG) Urine Blood Negative (NEG) Urine Nitrite Negative (NEG) Urine Bilirubin Negative (NEG) Urine Urobilinogen Dipstick 0.2 mg/dL (0.2 mg/dL) Urine Leukocyte Esterase Small (NEG) Urine RBC 0 /HPF (0-2) Urine WBC 1-4 /HPF (0-4) Urine Squamous Epithelial Cells Few /LPF Urine Amorphous Sediment Present /HPF Urine Bacteria Few /HPF (0-FEW) Urine Opiates Screen Pos (NEG) Urine Methadone Screen Neg (NEG) Urine Barbiturates Neg (NEG) Urine Phencyclidine Screen Neg (NEG) Urine Amphetamine/Methamphetamine Neg (NEG) Urine Benzodiazepines Screen Pos (NEG) Urine Cocaine Screen Neg (NEG) Urine Cannabinoids Screen Pos (NEG) Urine Ethyl Alcohol Neg (NEG) Medications Current Medications Lorazepam (Ativan) 1 mg 1X ONCE IV Last administered on 09/11/18at 21:00; Start 09/11/18 at 20:45; Stop 09/11/18 at 20:46; Status DC Methylprednisolone Sodium Succinate (SOLU-Medrol 125MG VIAL) 125 mg 1X ONCE IV Last administered on 09/11/18at 21:10; Start 09/11/18 at 20:45; Stop 09/11/18 at 20:46; Status DC Hydromorphone HCl (Dilaudid) 1 mg 1X ONCE IV Last administered on 09/11/18at 21:14; Start 09/11/18 at 21:15; Stop 09/11/18 at 21:16; Status DC Hydromorphone HCl (Dilaudid) 2 mg STK-MED ONCE .ROUTE ; Start 09/11/18 at 21:11; Stop 09/11/18 at 21:12; Status DC Doxycycline Hyclate (Vibra-Tab) 100 mg 1X ONCE PO Last administered on 09/11/18at 23:08; Start 09/11/18 at 23:15; Stop 09/11/18 at 23:16; Status DC Hydromorphone HCl (Dilaudid) 1 mg PRN Q4HRS PRN IV SEVERE PAIN Last adm inistered on 09/12/18at 13:52; Start 09/12/18 at 00:00 Ondansetron HCl (Zofran) 4 mg PRN Q8HRS PRN IV NAUSEA/VOMITING 1ST CHOICE Last administered on 09/12/18at 10:02; Start 09/12/18 at 00:00; Stop 09/12/18 at 23:59 Cyclobenzaprine HCl (Flexeril) 10 mg PRN Q6HRS PRN PO MUSCLE SPASMS Last administered on 09/12/18at 10:02; Start 09/12/18 at 08:30 Carbamazepine (TEGretol) 200 mg BID PO ; Start 09/12/18 at 14:00 Diazepam (Valium) 5 mg QHS PO ; Start 09/12/18 at 21:00 Diclofenac Sodium (Voltaren) 1 yinka QID TP ; Start 09/12/18 at 17:00 Ferrous Sulfate (Feosol) 325 mg DAILY PO ; Start 09/12/18 at 14:00 Lactulose (Lactulose) 20 gm PRN BID PRN PO CONSTIPATION; Start 09/12/18 at 13:30 Methocarbamol (Robaxin) 1,000 mg PRN TID PRN PO MUSCLE SPASMS 2ND CHOICE Last administered on 09/12/18at 14:21; Start 09/12/18 at 13:30 Oxycodone HCl (OxyCONTIN) 40 mg BID PO Last administered on 09/12/18at 13:46; Start 09/12/18 at 14:00 Pregabalin (Lyrica) 75 mg QHS PO ; Start 09/12/18 at 21:00 Non-Formulary Medication (Albuterol Sulfate (Ventolin Hfa Inhaler)) 2 puff Q4HRS INH ; Start 09/12/18 at 16:00; Status UNV Duloxetine HCl (Cymbalta) 60 mg DAILY PO ; Start 09/12/18 at 14:00 Fenofibrate (Lofibra) 134 mg DAILY PO ; Start 09/12/18 at 14:00 Montelukast Sodium (Singulair) 10 mg QHS PO ; Start 09/12/18 at 21:00 Ondansetron HCl (Zofran Odt) 4 mg PRN Q8HRS PRN PO NAUSEA/VOMITING; Start 09/12/18 at 13:45 Oxycodone HCl (OxyCONTIN) 10 mg Q12HR PO Last administered on 09/12/18at 13:45; Start 09/12/18 at 14:00 Ziprasidone (Geodon) 80 mg QHS PO ; Start 09/12/18 at 21:00 Albuterol Sulfate (Ventolin Neb Soln) 2.5 mg Q4HRS NEB ; Start 09/12/18 at 16:00 Active Scripts Active Reported Geodon (Ziprasidone Hcl) 80 Mg Capsule 1 Cap PO QHS Stress Formula (Multivits,Stress Formula) 1 Each Tablet 1 Each PO DAILY Lyrica (Pregabalin) 75 Mg Capsule 1 Cap PO QHS Lyrica (Pregabalin) 150 Mg Capsule 1 Cap PO DAILY Oxycontin (Oxycodone HCl) 20 Mg Tab.er.12h 10 Mg PO BID Oxycontin (Oxycodone HCl) 40 Mg Tab.er.12h 40 Mg PO BID Oxycontin (Oxycodone HCl) 40 Mg Tab.er.12h 40 Mg PO BID Oxycodone Hcl 5 Mg Capsule 10 Mg PO PRN Q4HRS PRN Ondansetron Hcl 4 Mg Tablet 1 Tab PO PRN Q8HRS PRN Omeprazole 40 Mg Capsule.dr 1 Cap PO DAILY Montelukast Sodium Tablet (Montelukast Sodium) 10 Mg Tablet 1 Tab PO DAILY Robaxin (Methocarbamol) 500 Mg Tablet 2 Tab PO PRN TID PRN Lamotrigine 150 Mg Tablet 1 Tab PO QHS Lactulose 20 Gm/30 Ml Solution 10-20 Gm PO PRN BID PRN Ferrous Sulfate 325 Mg Tablet 1 Tab PO DAILY Fenofibrate (Fenofibrate Nanocrystallized) 145 Mg Tablet 1 Tab PO DAILY Cymbalta (Duloxetine Hcl) 60 Mg Capsule.dr 1 Cap PO DAILY Voltaren (Diclofenac Sodium) 100 Gm Gel..gram. 1 Gm TP QID Diazepam 5 Mg Tablet 5 Mg PO QHS Tegretol (Carbamazepine) 200 Mg Tablet 1 Tab PO BID Ventolin Hfa Inhaler (Albuterol Sulfate) 18 Gm Hfa.aer.ad 2 Puff INH Q4HRS Vitals/I & O Vital Sign - Last 24 Hours 09/11/18 09/11/18 09/12/18 09/12/18 20:02 21:14 00:03 00:15 Temp 97.5 98.0 97.5 98.0 Pulse 78 78 Resp 26 18 B/P (MAP) 145/64 (91) 117/57 (77) Pulse Ox 98 94 95 O2 Delivery Room Air Room Air Nasal Cannula Nasal Cannula O2 Flow Rate 2.0 2.0 09/12/18 09/12/18 09/12/18 09/12/18 01:32 02:00 03:00 06:15 Temp 98.1 98.1 Pulse 90 Resp 18 B/P (MAP) 136/51 (79) Pulse Ox 95 O2 Delivery Nasal Cannula Nasal Cannula Room Air O2 Flow Rate 2.0 2.0 2.0 09/12/18 09/12/18 09/12/18 09/12/18 07:00 07:47 11:00 14:22 Temp 98.1 97.7 98.1 97.7 Pulse 81 75 Resp 16 16 14 B/P (MAP) 125/77 (93) 139/71 (93) Pulse Ox 92 93 O2 Delivery Room Air Room Air Room Air Room Air 09/12/18 15:00 Temp 98.1 98.1 Pulse 71 Resp 16 B/P (MAP) 138/78 (98) Pulse Ox 92 O2 Delivery Room Air JAIDA LEPE CAR PACKER September 12, 2018 15:52
[2018-09-12] MEDS: DICLOFENAC SODIUM 1% TOPICAL GEL 100GM TUBE. TP SCH ×2 (15:57→21:08)
[2018-09-12] MEDS ORDERED: NON FORMULARY ITEM (Albuterol Sulfate (Ventolin Hfa Inhaler) 2 PUFF) INH SCH (16:00)
[2018-09-12] MEDS: oxyCODONE IR 5 MG TABLET PO PRN ×2 (17:29→22:06)
[2018-09-12] MEDS ORDERED: MONTELUKAST SODIUM 10 MG TABLET. PO SCH (21:00)
[2018-09-12] MEDS ORDERED: diazePAM 5 MG TABLET PO SCH (21:00)
[2018-09-12] MEDS ORDERED: ZIPRASIDONE 20 MG CAPSULE PO SCH (21:00)
[2018-09-12] MEDS ORDERED: PREGABALIN 75 MG CAPSULE PO SCH (21:00)
[2018-09-13] MEDS: ALBUTEROL SULFATE 2.5 MG/3 ML NEBU. NEB SCH ×4 (00:25→12:05)
--- NOTE | 2018-09-13 04:13 | NUR ---
PT REQUESTED NOT TO BE AWOKEN AT NIGHT FOR BREATHING TREATMENT. PT WILL CALL IF SOA
[2018-09-13 07:00] VITALS: BP 119/67
--- NOTE | 2018-09-13 08:28 | PDOC ---
PROGRESS NOTES Chief Complaint Chief Complaint A/P: Intractable back pain - IV medications do not seem to be helping, will restart her home medications, consult neurosurgery Myalgias - seems she may be in some opioid withdrawal at this time regarding her symptoms, will restart her Oxycontin Anxiety - cont meds. Advised she should either not be taking benzos or be taking them with extreme caution with her high dosing regimen of opioids to avoid conscious sedation and risk of overdose. 20 minutes spent counseling on proper medication use Arthritis - with polyarthralgias, given steroids with little improvement Asthma - cont nebs Fibromyalgia - cont cymbalta High Cholesterol - cont statin Seizures - cont meds DJD cervical spine with cervical spinal stenosis - s/p surgery, has f/u with [facility], will order records FEN - General diet PPX - heparin FULL CODE Inpatient for intractable back pain and myalgias, patient unable to move. Will cont pain management until she is ambulatory, f/u with neurosurgery, may be able to d/c in next day or 2 if no interventions are planned History of Present Illness History of Present Illness Ms Richey is a 53-year-old female w/ PMHx Anxiety, Arthritis, Asthma, D iverticulitis, Fibromyalgia, High Cholesterol, Seizures, DJD cervical spine, cervical spinal stenosis who presents to ER for complaints of sudden onset of posterior neck pain radiating down her spine into her legs. Patient states she was sitting talking with her when she turned her head and had sudden onset of burning sensation. Pt on arrival is anxious and tearful. Patient states she has chronic neck and back pain however this is more severe than previous times, she notes aching in all the muscles of her body. Patient denies inability to move all extremities. Patient denies saddle anesthesia, incontinence of bowel or bladder, headache or dizziness, swelling, chest pain, or palpitations. Shouldn't denies any recent injury or falls. Patient states she has had increased stress as a family member is actively dying. Patient states she is on daily OxyIR 10mg TID and Oxycontin recently increased to 50mg BID. States she does not miss doses Patient reports she had an MRI last month at [facility] for spinal stenosis and has f/u there. After restarting home medications she has been ambulatory, even standing on 1 foot. Wishes for her home lyrica to be increased and states she is anxious about running out of medications on Saturday. I have informed her as she is in a pain contract she cannot be discharged with controlled substances as she did not require surgical procedure. Vitals Vitals Vital Signs Date Time Temp Pulse Resp B/P (MAP) Pulse Ox O2 Delivery O2 Flow Rate FiO2 09/13/18 07:00 97.7 70 18 119/67 (84) 96 Room Air 97.7 09/12/18 21:07 2.0 Physical Exam General: Alert, Oriented X3, Cooperative, No acute distress Abdomen: Normal bowel sounds, Soft, No tenderness, No hepatosplenomegaly, No masses Extremities: No clubbing, No cyanosis, No edema, Normal pulses, No tenderness/swelling Skin: No rashes, No breakdown, No significant lesion Assessment and Plan Assessmemt and Plan Problems Medical Problems: (1) Back pain Status: Acute (2) Intractable pain Status: Acute (3) Neck pain Status: Acute Comment Review of Relevant I have reviewed the following items jen (where applicable) has been applied. Labs Laboratory Tests Test 09/11/18 21:40 09/11/18 22:02 09/12/18 05:00 White Blood Count 10.2 x10^3/uL (4.0-11.0) 10.0 x10^3/uL (4.0-11.0) Red Blood Count 5.10 x10^6/uL (3.50-5.40) 5.50 x10^6/uL (3.50-5.40) Hemoglobin 15.4 g/dL (12.0-15.5) 16.3 g/dL (12.0-15.5) Hematocrit 45.3 % (36.0-47.0) 48.6 % (36.0-47.0) Mean Corpuscular Volume 89 fL (79-100) 89 fL (79-100) Mean Corpuscular Hemoglobin 30 pg (25-35) 30 pg (25-35) Mean Corpuscular Hemoglobin Concent 34 g/dL (31-37) 34 g/dL (31-37) Red Cell Distribution Width 15.0 % (11.5-14.5) 15.1 % (11.5-14.5) Platelet Count 226 x10^3/uL (140-400) 266 x10^3/uL (140-400) Neutrophils (%) (Auto) 55 % (31-73) 83 % (31-73) Lymphocytes (%) (Auto) 35 % (24-48) 14 % (24-48) Monocytes (%) (Auto) 8 % (0-9) 3 % (0-9) Eosinophils (%) (Auto) 1 % (0-3) 0 % (0-3) Basophils (%) (Auto) 1 % (0-3) 1 % (0-3) Neutrophils # (Auto) 5.6 x10^3uL (1.8-7.7) 8.2 x10^3uL (1.8-7.7) Lymphocytes # (Auto) 3.5 x10^3/uL (1.0-4.8) 1.4 x10^3/uL (1.0-4.8) Monocytes # (Auto) 0.8 x10^3/uL (0.0-1.1) 0.3 x10^3/uL (0.0-1.1) Eosinophils # (Auto) 0.1 x10^3/uL (0.0-0.7) 0.0 x10^3/uL (0.0-0.7) Basophils # (Auto) 0.1 x10^3/uL (0.0-0.2) 0.1 x10^3/uL (0.0-0.2) Sodium Level 143 mmol/L (136-145) 141 mmol/L (136-145) Potassium Level 3.7 mmol/L (3.5-5.1) 4.0 mmol/L (3.5-5.1) Chloride Level 105 mmol/L (98-107) 104 mmol/L (98-107) Carbon Dioxide Level 27 mmol/L (21-32) 23 mmol/L (21-32) Anion Gap 11 (6-14) 14 (6-14) Blood Urea Nitrogen 16 mg/dL (7-20) 20 mg/dL (7-20) Creatinine 1.0 mg/dL (0.6-1.0) 0.9 mg/dL (0.6-1.0) Estimated GFR (Cockcroft-Gault) 58.5 66.0 BUN/Creatinine Ratio 16 (6-20) Glucose Level 116 mg/dL (70-99) 146 mg/dL (70-99) Calcium Level 9.1 mg/dL (8.5-10.1) 9.6 mg/dL (8.5-10.1) Total Bilirubin 0.3 mg/dL (0.2-1.0) Aspartate Amino Transf (AST/SGOT) 20 U/L (15-37) Alanine Aminotransferase (ALT/SGPT) 27 U/L (14-59) Alkaline Phosphatase 80 U/L (46-116) Troponin I Quantitative < 0.017 ng/mL (0.000-0.055) Total Protein 7.1 g/dL (6.4-8.2) Albumin 3.6 g/dL (3.4-5.0) Albumin/Globulin Ratio 1.0 (1.0-1.7) Urine Collection Type Unknown Urine Color Yellow Urine Clarity Cloudy Urine pH 8.5 Urine Specific [place] 1.015 Urine Protein Negative mg/dL (NEG-TRACE) Urine Glucose (UA) Negative mg/dL (NEG) Urine Ketones (Stick) Negative mg/dL (NEG) Urine Blood Negative (NEG) Urine Nitrite Negative (NEG) Urine Bilirubin Negative (NEG) Urine Urobilinogen Dipstick 0.2 mg/dL (0.2 mg/dL) Urine Leukocyte Esterase Small (NEG) Urine RBC 0 /HPF (0-2) Urine WBC 1-4 /HPF (0-4) Urine Squamous Epithelial Cells Few /LPF Urine Amorphous Sediment Present /HPF Urine Bacteria Few /HPF (0-FEW) Urine Opiates Screen Pos (NEG) Urine Methadone Screen Neg (NEG) Urine Barbiturates Neg (NEG) Urine Phencyclidine Screen Neg (NEG) Urine Amphetamine/Methamphetamine Neg (NEG) Urine Benzodiazepines Screen Pos (NEG) Urine Cocaine Screen Neg (NEG) Urine Cannabinoids Screen Pos (NEG) Urine Ethyl Alcohol Neg (NEG) Medications Current Medications Lorazepam (Ativan) 1 mg 1X ONCE IV Last administered on 09/11/18at 21:00; Start 09/11/18 at 20:45; Stop 09/11/18 at 20:46; Status DC Methylprednisolone Sodium Succinate (SOLU-Medrol 125MG VIAL) 125 mg 1X ONCE IV Last administered on 09/11/18at 21:10; Start 09/11/18 at 20:45; Stop 09/11/18 at 20:46; Status DC Hydromorphone HCl (Dilaudid) 1 mg 1X ONCE IV Last administered on 09/11/18at 21:14; Start 09/11/18 at 21:15; Stop 09/11/18 at 21:16; Status DC Hydromorphone HCl (Dilaudid) 2 mg STK-MED ONCE .ROUTE ; Start 09/11/18 at 21:11; Stop 09/11/18 at 21:12; Status DC Doxycycline Hyclate (Vibra-Tab) 100 mg 1X ONCE PO Last administered on 09/11/18at 23:08; Start 09/11/18 at 23:15; Stop 09/11/18 at 23:16; Status DC Hydromorphone HCl (Dilaudid) 1 mg PRN Q4HRS PRN IV SEVERE PAIN Last administered on 09/12/18at 13:52; Start 09/12/18 at 00:00; Stop 09/12/18 at 17:04; Status DC Ondansetron HCl (Zofran) 4 mg PRN Q8HRS PRN IV NAUSEA/VOMITING 1ST CHOICE Last administered on 09/12/18at 10:02; Start 09/12/18 at 00:00; Stop 09/12/18 at 23:59; Status DC Cyclobenzaprine HCl (Flexeril) 10 mg PRN Q6HRS PRN PO MUSCLE SPASMS Last administered on 09/12/18at 15:57; Start 09/12/18 at 08:30 Carbamazepine (TEGretol) 200 mg BID PO Last administered on 09/12/18at 21:07; Start 09/12/18 at 14:00 Diazepam (Valium) 5 mg QHS PO Last administered on 09/12/18at 21:07; Start 09/12/18 at 21:00 Diclofenac Sodium (Voltaren) 1 yinka QID TP Last administered on 09/12/18at 21:08; Start 09/12/18 at 17:00 Ferrous Sulfate (Feosol) 325 mg DAILY PO ; Start 09/12/18 at 14:00 Lactulose (Lactulose) 20 gm PRN BID PRN PO CONSTIPATION; Start 09/12/18 at 13:30 Methocarbamol (Robaxin) 1,000 mg PRN TID PRN PO MUSCLE SPASMS 2ND CHOICE Last administered on 09/12/18 14:21; Start 09/12/18 at 13:30 Oxycodone HCl (OxyCONTIN) 40 mg BID PO Last administered on 09/12/18 21:07; Start 09/12/18 at 14:00 Pregabalin (Lyrica) 75 mg QHS PO Last administered on 09/12/18 21:07; Start 09/12/18 at 21:00 Non-Formulary Medication (Albuterol Sulfate (Ventolin Hfa Inhaler)) 2 puff Q4HRS INH ; Start 09/12/18 at 16:00; Status UNV Duloxetine HCl (Cymbalta) 60 mg DAILY PO ; Start 09/12/18 at 14:00 Fenofibrate (Lofibra) 134 mg DAILY PO ; Start 09/12/18 at 14:00 Montelukast Sodium (Singulair) 10 mg QHS PO Last administered on 09/12/18at 21:07; Start 09/12/18 at 21:00 Ondansetron HCl (Zofran Odt) 4 mg PRN Q8HRS PRN PO NAUSEA/VOMITING Last administered on 09/12/18 17:29; Start 09/12/18 at 13:45 Oxycodone HCl (OxyCONTIN) 10 mg Q12HR PO Last administered on 09/12/18 21:07; Start 09/12/18 at 14:00 Ziprasidone (Geodon) 80 mg QHS PO Last administered on 09/12/18 21:07; Start 09/12/18 at 21:00 Albuterol Sulfate (Ventolin Neb Soln) 2.5 mg Q4HRS NEB Last administered on 09/12/18at 20:22; Start 09/12/18 at 16:00 Oxycodone HCl (Roxicodone) 10 mg PRN Q4HRS PRN PO PAIN Last administered on 09/12/18 22:06; Start 09/12/18 at 17:15 Active Scripts Active Reported Geodon (Ziprasidone Hcl) 80 Mg Capsule 1 Cap PO QHS Stress Formula (Multivits,Stress Formula) 1 Each Tablet 1 Each PO DAILY Lyrica (Pregabalin) 75 Mg Capsule 1 Cap PO QHS Lyrica (Pregabalin) 150 Mg Capsule 1 Cap PO DAILY Oxycontin (Oxycodone HCl) 20 Mg Tab.er.12h 10 Mg PO BID Oxycontin (Oxycodone HCl) 40 Mg Tab.er.12h 40 Mg PO BID Oxycontin (Oxycodone HCl) 40 Mg Tab.er.12h 40 Mg PO BID Oxycodone Hcl 5 Mg Capsule 10 Mg PO PRN Q4HRS PRN Ondansetron Hcl 4 Mg Tablet 1 Tab PO PRN Q8HRS PRN Omeprazole 40 Mg Capsule.dr 1 Cap PO DAILY Montelukast Sodium Tablet (Montelukast Sodium) 10 Mg Tablet 1 Tab PO DAILY Robaxin (Methocarbamol) 500 Mg Tablet 2 Tab PO PRN TID PRN Lamotrigine 150 Mg Tablet 1 Tab PO QHS Lactulose 20 Gm/30 Ml Solution 10-20 Gm PO PRN BID PRN Ferrous Sulfate 325 Mg Tablet 1 Tab PO DAILY Fenofibrate (Fenofibrate Nanocrystallized) 145 Mg Tablet 1 Tab PO DAILY Cymbalta (Duloxetine Hcl) 60 Mg Capsule.dr 1 Cap PO DAILY Voltaren (Diclofenac Sodium) 100 Gm Gel..gram. 1 Gm TP QID Diazepam 5 Mg Tablet 5 Mg PO QHS Tegretol (Carbamazepine) 200 Mg Tablet 1 Tab PO BID Ventolin Hfa Inhaler (Albuterol Sulfate) 18 Gm Hfa.aer.ad 2 Puff INH Q4HRS Vitals/I & O Vital Sign - Last 24 Hours 09/12/18 09/12/18 09/12/18 09/12/18 11:00 14:22 15:00 15:48 Temp 97.7 98.1 97.7 98.1 Pulse 75 71 Resp 16 14 16 B/P (MAP) 139/71 (93) 138/78 (98) Pulse Ox 93 92 94 O2 Delivery Room Air Room Air Room Air Room Air 09/12/18 09/12/18 09/12/18 09/12/18 19:00 20:00 20:23 21:07 Temp 97.8 97.8 Pulse 79 Resp 18 B/P (MAP) 129/66 (87) Pulse Ox 93 90 90 O2 Delivery Room Air Room Air Room Air Room Air O2 Flow Rate 2.0 09/12/18 09/12/18 09/12/18 09/12/18 21:07 22:06 23:00 23:06 Temp 98.0 98.0 Pulse 63 Resp 18 B/P (MAP) 125/67 (86) Pulse Ox 90 90 95 95 O2 Delivery Room Air Room Air Room Air Room Air 09/13/18 09/13/18 09/13/18 01:07 01:07 07:00 Temp 97.7 97.7 Pulse 70 Resp 18 B/P (MAP) 119/67 (84) Pulse Ox 95 95 96 O2 Delivery Room Air Room Air Room Air Intake and Output 09/12/18 09/12/18 09/13/18 14:59 22:59 06:59 Intake Total 900 ml 1100 ml Balance 900 ml 1100 ml PASCUAL CARR MD September 13, 2018 08:28
[2018-09-13] MEDS: DICLOFENAC SODIUM 1% TOPICAL GEL 100GM TUBE. TP SCH (09:00)
[2018-09-13] MEDS: FENOFIBRATE,MICRONIZED 134 MG CAPSULE PO SCH (09:06)
[2018-09-13] MEDS: FERROUS SULFATE 325 MG TABLET. PO SCH (09:07)
[2018-09-13] MEDS: carBAMazepine 200 MG TABLET PO SCH (09:07)
[2018-09-13] MEDS: oxyCODONE ER 10 MG TAB.ER.12H PO SCH (09:08)
[2018-09-13] MEDS: oxyCODONE ER 40 MG TAB.ER.12H PO SCH (09:08)
[2018-09-13] MEDS: DULoxetine HCL 30 MG CAPSULE.DR PO SCH (09:09)
--- NOTE | 2018-09-13 09:43 | NUR ---
SW following for discharge planning. Discussed with RN, pt is from home with . RN advised no SW needs and anticipates pt will discharge home today with self care.
[2018-09-13] MEDS ORDERED: PREGABALIN 50 MG CAPSULE PO SCH (10:45)
[2018-09-13 11:00] VITALS: BP 135/67
--- NOTE | 2018-09-13 12:17 | PDOC3 ---
Discharge Summary Visit Information Date of Admission: September 11, 2018 Date of Discharge: September 13, 2018 Admitting Diagnosis: Intractable back pain Final Diagnosis Problems Medical Problems: (1) Back pain Status: Acute (2) Intractable pain Status: Acute (3) Neck pain Status: Acute Brief Hospital Course Allergies Allergies Coded Allergies Type Severity Reaction Last Updated Verified Latex, Natural Rubber Allergy Intermediate BLISTERS 01/27/15 Yes esomeprazole Allergy Intermediate HIVES, NAUSEA 01/27/15 Yes morphine Allergy Intermediate SEE COMMENTS 01/27/15 No pantoprazole Allergy Intermediate RASH 01/27/15 Yes Vital Signs Vital Signs Date Time Temp Pulse Resp B/P (MAP) Pulse Ox O2 Delivery O2 Flow Rate FiO2 09/13/18 12:05 Room Air 09/13/18 07:30 2.0 09/13/18 07:00 97.7 70 18 119/67 (84) 96 97.7 Lab Results Laboratory Tests Test 09/11/18 21:40 09/11/18 22:02 09/12/18 05:00 White Blood Count 10.2 x10^3/uL (4.0-11.0) 10.0 x10^3/uL (4.0-11.0) Red Blood Count 5.10 x10^6/uL (3.50-5.40) 5.50 x10^6/uL (3.50-5.40) Hemoglobin 15.4 g/dL (12.0-15.5) 16.3 g/dL (12.0-15.5) Hematocrit 45.3 % (36.0-47.0) 48.6 % (36.0-47.0) Mean Corpuscular Volume 89 fL (79-100) 89 fL (79-100) Mean Corpuscular Hemoglobin 30 pg (25-35) 30 pg (25-35) Mean Corpuscular Hemoglobin Concent 34 g/dL (31-37) 34 g/dL (31-37) Red Cell Distribution Width 15.0 % (11.5-14.5) 15.1 % (11.5-14.5) Platelet Count 226 x10^3/uL (140-400) 266 x10^3/uL (140-400) Neutrophils (%) (Auto) 55 % (31-73) 83 % (31-73) Lymphocytes (%) (Auto) 35 % (24-48) 14 % (24-48) Monocytes (%) (Auto) 8 % (0-9) 3 % (0-9) Eosinophils (%) (Auto) 1 % (0-3) 0 % (0-3) Basophils (%) (Auto) 1 % (0-3) 1 % (0-3) Neutrophils # (Auto) 5.6 x10^3uL (1.8-7.7) 8.2 x10^3uL (1.8-7.7) Lymphocytes # (Auto) 3.5 x10^3/uL (1.0-4.8) 1.4 x10^3/uL (1.0-4.8) Monocytes # (Auto) 0.8 x10^3/uL (0.0-1.1) 0.3 x10^3/uL (0.0-1.1) Eosinophils # (Auto) 0.1 x10^3/uL (0.0-0.7) 0.0 x10^3/uL (0.0-0.7) Basophils # (Auto) 0.1 x10^3/uL (0.0-0.2) 0.1 x10^3/uL (0.0-0.2) Sodium Level 143 mmol/L (136-145) 141 mmol/L (136-145) Potassium Level 3.7 mmol/L (3.5-5.1) 4.0 mmol/L (3.5-5.1) Chloride Level 105 mmol/L (98-107) 104 mmol/L (98-107) Carbon Dioxide Level 27 mmol/L (21-32) 23 mmol/L (21-32) Anion Gap 11 (6-14) 14 (6-14) Blood Urea Nitrogen 16 mg/dL (7-20) 20 mg/dL (7-20) Creatinine 1.0 mg/dL (0.6-1.0) 0.9 mg/dL (0.6-1.0) Estimated GFR (Cockcroft-Gault) 58.5 66.0 BUN/Creatinine Ratio 16 (6-20) Glucose Level 116 mg/dL (70-99) 146 mg/dL (70-99) Calcium Level 9.1 mg/dL (8.5-10.1) 9.6 mg/dL (8.5-10.1) Total Bilirubin 0.3 mg/dL (0.2-1.0) Aspartate Amino Transf (AST/SGOT) 20 U/L (15-37) Alanine Aminotransferase (ALT/SGPT) 27 U/L (14-59) Alkaline Phosphatase 80 U/L (46-116) Troponin I Quantitative < 0.017 ng/mL (0.000-0.055) Total Protein 7.1 g/dL (6.4-8.2) Albumin 3.6 g/dL (3.4-5.0) Albumin/Globulin Ratio 1.0 (1.0-1.7) Urine Collection Type Unknown Urine Color Yellow Urine Clarity Cloudy Urine pH 8.5 Urine Specific Fielding 1.015 Urine Protein Negative mg/dL (NEG-TRACE) Urine Glucose (UA) Negative mg/dL (NEG) Urine Ketones (Stick) Negative mg/dL (NEG) Urine Blood Negative (NEG) Urine Nitrite Negative (NEG) Urine Bilirubin Negative (NEG) Urine Urobilinogen Dipstick 0.2 mg/dL (0.2 mg/dL) Urine Leukocyte Esterase Small (NEG) Urine RBC 0 /HPF (0-2) Urine WBC 1-4 /HPF (0-4) Urine Squamous Epithelial Cells Few /LPF Urine Amorphous Sediment Present /HPF Urine Bacteria Few /HPF (0-FEW) Urine Opiates Screen Pos (NEG) Urine Methadone Screen Neg (NEG) Urine Barbiturates Neg (NEG) Urine Phencyclidine Screen Neg (NEG) Urine Amphetamine/Methamphetamine Neg (NEG) Urine Benzodiazepines Screen Pos (NEG) Urine Cocaine Screen Neg (NEG) Urine Cannabinoids Screen Pos (NEG) Urine Ethyl Alcohol Neg (NEG) Brief Hospital Course Ms Richey is a 53-year-old female w/ PMHx Anxiety, Arthritis, Asthma, Diverticulitis, Fibromyalgia, High Cholesterol, Seizures, DJD cervical spine, cervical spinal stenosis who presents to ER for complaints of sudden onset of posterior neck pain radiating down her spine into her legs. Patient states she was sitting talking with her when she turned her head and had sudden onset of burning sensation. Pt on arrival is anxious and tearful. Patient states she has chronic neck and back pain however this is more severe than previous times, she notes aching in all the muscles of her body. Patient denies inability to move all extremities. Patient denies saddle anesthesia, incontinence of bowel or bladder, headache or dizziness, swelling, chest pain, or palpitations. Shouldn't denies any recent injury or falls. Patient states she has had increased stress as a family member is actively dying. Patient states she is on daily OxyIR 10mg TID and Oxycontin recently increased to 50mg BID. States she does not miss doses Patient reports she had an MRI last month at [facility] for spinal stenosis and has f/u there. After restarting home medications she has been ambulatory, even standing on 1 foot. Wishes for her home lyrica to be increased and states she is anxious about running out of medications on Tuesday. I have informed her as she is in a pain contract she cannot be discharged with controlled substances as she did not require surgical procedure. Seen by neurosurgery who discussed the case with her primary surgeon and she will be discharged with f/u outpatient. A/P: Intractable back pain - IV medications do not seem to be helping, will restart her home medications, consulted neurosurgery Myalgias - seems she may be in some opioid withdrawal at this time regarding her symptoms, will restart her Oxycontin Anxiety - cont meds. Advised she should either not be taking benzos or be taking them with extreme caution with her high dosing regimen of opioids to avoid conscious sedation and risk of overdose. 20 minutes spent counseling on proper medication use Arthritis - with polyarthralgias, given steroids with little improvement Asthma - cont nebs Fibromyalgia - cont cymbalta High Cholesterol - cont statin Seizures - cont meds DJD cervical spine with cervical spinal stenosis - s/p surgery, has f/u with [facility] Greater than 30 minutes spent on d/c Discharge Information Condition at Discharge: Improved Follow Up: Weeks (2) Disposition/Orders: D/C to Home Scheduled Albuterol Sulfate (Ventolin Hfa Inhaler) 18 Gm Hfa.aer.ad, 2 PUFF INH Q4HRS for FOR ASTHMA, Ref 0 (Reported) Entered as Reported by: JASON PARKS on 09/12/18 1305 Last Taken: Unknown Dose on 09/11/181999 Last Action: Converted on 1323 by PASCUAL CARR MD Carbamazepine (Tegretol) 200 Mg Tablet, 1 TAB PO BID for fibromyalgia, #60 Ref 2 (Reported) Entered as Reported by: JASON PARKS on 09/12/181304 Last Taken: Unknown Dose on 09/11/181999 Last Action: Continued on 09/12/181322 by PASCUAL CARR MD Diazepam (Diazepam) 5 Mg Tablet, 5 MG PO QHS for anxiety, (Reported) Entered as Reported by: JASON PARKS on 09/12/181304 Last Taken: Unknown Dose on 09/11/181999 Last Action: Continued on 09/12/181322 by PASCUAL CARR MD Diclofenac Sodium (Voltaren) 100 Gm Gel..gram., 1 GM TP QID for pain, #100 Ref 2 (Reported) Entered as Reported by: JASON PARKS on 09/12/181304 Last Taken: Unknown Dose on 09/11/181999 Last Action: Continued on 09/12/181322 by PASCUAL CARR MD Duloxetine Hcl (Cymbalta) 60 Mg Capsule.dr, 1 CAP PO DAILY for depression, #90 Ref 3 (Reported) Entered as Reported by: JASON PARKS on 09/12/181304 Last Taken: Unknown Dose on 09/11/18899 Last Action: Converted on 09/12/181322 by PASCUAL CARR MD Fenofibrate Nanocrystallized (Fenofibrate) 145 Mg Tablet, 1 TAB PO DAILY for hyp erlipidemia, #30 Ref 5 (Reported) Entered as Reported by: JASON PARKS on 09/12/181304 Last Taken: Unknown Dose on 09/11/18899 Last Action: Converted on 09/12/181322 by PASCUAL CARR MD Ferrous Sulfate (Ferrous Sulfate) 325 Mg Tablet, 1 TAB PO DAILY for anemia, #30 Ref 3 (Reported) Entered as Reported by: JASON PARKS on 09/12/181304 Last Taken: Unknown Dose on 09/11/18899 Last Action: Continued on 09/12/181322 by PASCUAL CARR MD Lamotrigine (Lamotrigine) 150 Mg Tablet, 1 TAB PO QHS for depression, #30 Ref 2 (Reported) Entered as Reported by: JASON PARKS on 09/12/181304 Last Taken: Unknown Dose on 09/11/181999 Last Action: New Order on 09/12/181304 by JASON PARKS Montelukast Sodium (Montelukast Sodium Tablet) 10 Mg Tablet, 1 TAB PO DAILY for asthma, #30 Ref 5 (Reported) Entered as Reported by: JASON PARKS on 09/12/181304 Last Taken: Unknown Dose on 09/11/18899 Last Action: Converted on 09/12/181322 by PASCUAL CARR MD Multivits,Stress Formula (Stress Formula) 1 Each Tablet, 1 EACH PO DAILY for supplement, (Reported) Entered as Reported by: JASON PARKS on 09/12/181304 Last Taken: Unknown Dose on 09/11/18899 Last Action: New Order on 09/12/181304 by JASON PARKS Omeprazole (Omeprazole) 40 Mg Capsule.dr, 1 CAP PO DAILY for GERD, #30 Ref 3 (Reported) Entered as Reported by: JASON PARKS on 09/12/181304 Last Taken: Unknown Dose on 09/11/18899 Last Action: New Order on 09/12/181304 by JASON PARKS Oxycodone Hcl (Oxycontin) 40 Mg Tab.er.12h, 40 MG PO BID for PAIN, (Reported) Entered as Reported by: JASON PARKS on 09/12/181304 Last Action: New Order on 09/12/181304 by JASON PARKS Oxycodone Hcl (Oxycontin) 40 Mg Tab.er.12h, 40 MG PO BID for PAIN, (Reported) Entered as Reported by: JASON PARKS on 09/12/181304 Last Taken: Unknown Dose on 09/11/181999 Last Action: Continued on 09/12/181322 by PASCUAL CARR MD Oxycodone Hcl (Oxycontin) 20 Mg Tab.er.12h, 10 MG PO BID for PAIN, (Reported) Entered as Reported by: JASON PARKS on 09/12/181304 Last Taken: Unknown Dose on 09/11/181999 Last Action: Converted on 09/12/181322 by PASCUAL CARR MD Pregabalin (Lyrica) 150 Mg Capsule, 1 CAP PO DAILY for pain, #60 Ref 5 (Reported) Entered as Reported by: JASON PARKS on 09/12/181304 Last Taken: Unknown Dose on 09/11/18 0900 Last Action: Converted on 09/13/18 1040 by PASCUAL CARR MD Pregabalin (Lyrica) 75 Mg Capsule, 1 CAP PO QHS for pain, #60 Ref 1 (Reported) Entered as Reported by: JASON PARKS on 09/12/181304 Last Taken: Unknown Dose on 09/11/181999 Last Action: Continued on 09/12/181322 by PASCUAL CARR MD Ziprasidone Hcl (Geodon) 80 Mg Capsule, 1 CAP PO QHS for depression, #60 Ref 1 (Reported) Entered as Reported by: JASON PARKS on 09/12/181304 Last Taken: Unknown Dose on 09/11/181999 Last Action: Converted on 09/12/181322 by PASCUAL CARR MD Scheduled PRN Lactulose (Lactulose) 20 Gm/30 Ml Solution, 10-20 GM PO PRN BID PRN for CONSTIPATION, (Reported) Entered as Reported by: JASON PARKS on 09/12/181304 Last Taken: UNKNOWN on Unknown Date & Time Last Action: Continued on 09/12/181322 by PASCUAL CARR MD Methocarbamol (Robaxin) 500 Mg Tablet, 2 TAB PO PRN TID PRN for MUSCLE SPASMS, #60 (Reported) Entered as Reported by: JASON PARKS on 09/12/181304 Last Taken: Unknown Dose on 09/11/181999 Last Action: Continued on 09/12/181322 by PASCUAL CARR MD Ondansetron Hcl (Ondansetron Hcl) 4 Mg Tablet, 1 TAB PO PRN Q8HRS PRN for NAUSEA/VOMITING, #10 Ref 1 (Reported) Entered as Reported by: JASON PARKS on 09/12/181304 Last Taken: Unknown Dose on 09/11/181999 Last Action: Converted on 09/12/181322 by PASCUAL CARR MD Oxycodone Hcl (Oxycodone Hcl) 5 Mg Capsule, 10 MG PO PRN Q4HRS PRN for PAIN, Ref 0 (Reported) Entered as Reported by: JASON PARKS on 09/12/181304 Last Taken: Unknown Dose on 09/11/181999 Last Action: Converted on 09/12/18 170 by PASCUAL OLIVARES MD September 13, 2018 12:17
--- NOTE | 2018-09-13 15:29 | NUR ---
Pt was discharged to home at 1300 today in stable condition after reviewing all pertinent information including education, medications, follow up and at home care. Pt was escorted via WC and accompanied by staff and to the main exit where her drove her home
== END 2018-09-13 13:00 | disposition home or self-care (01) | DRG 552 ==
LOC: ER 19:59 → 4 NORTH 22:15
PROVIDERS: ADMIT Internal Medicine; ATTEND Internal Medicine
DX: M48.02 Spinal stenosis, cervical region (principal); F11.23 Opioid dependence with withdrawal; M54.9 Dorsalgia, unspecified; M19.90 Unspecified osteoarthritis, unspecified site; M79.7 Fibromyalgia; J45.909 Unspecified asthma, uncomplicated; F41.9 Anxiety disorder, unspecified; E78.00 Pure hypercholesterolemia, unspecified; G89.29 Other chronic pain; M47.812 Spondylosis without myelopathy or radiculopathy, cervical region; M54.5 Low back pain; E78.5 Hyperlipidemia, unspecified; Z88.8 Allergy status to other drugs, medicaments and biological substances; Z85.42 Personal history of malignant neoplasm of other parts of uterus; Z82.49 Family history of ischemic heart disease and other diseases of the circulatory system; Z88.6 Allergy status to analgesic agent; Z91.040 Latex allergy status
CPT/HCPCS: 36415; 71045; 80048; 80053; 80307; 81001; 84484; 85025; 87086; 93005; 94640; 96374; 96375; J1170; J2060; J2405; J2930; J7613; Q0162; 99285-25